=== PATIENT | male | born 1990 | race Caucasian/White ===

== ENCOUNTER 2023-08-03 16:27 | Inpatient (IN) | payer BC ==
[~2023-08-03] VITALS: Ht 165.1 cm; Wt 108.4 kg
[2023-08-03 17:41] VITALS: BP_SYST 134; PULSE 97; RESP 18; TEMP 96.7; O2SAT 96
[2023-08-03 17:51] LABS: BASOPHILS # (AUTO) 0.1 K/uL (0.0-0.2); BASOPHILS % (AUTO) 0.8 % (0.0-2.0); EOSINOPHILS # (AUTO) 0.2 K/uL (0.0-0.4); EOSINOPHILS % (AUTO) 1.5 % (0.0-4.0); HEMATOCRIT 48.8 % (36-54); LYMPHOCYTES # (AUTO) 3.5 K/uL (1.0-5.5); LYMPHOCYTES % (AUTO) 27.3 % (20.5-51.5); MEAN CORPUSCULAR HEMOGLOBIN 29 pg (27-31); MEAN CORPUSCULAR HGB CONC 35 % (32-36); MEAN CORPUSCULAR VOLUME 84 fL (79.0-98.0); MONOCYTES # (AUTO) 0.7 K/uL (0.0-1.0); MONOCYTES % (AUTO) 5.6 % (1.7-9.3); NEUTROPHILS # (AUTO) 8.3 K/uL (1.8-7.7); NEUTROPHILS % (AUTO) 64.8 % (40.0-70.0); PLATELET COUNT (AUTO) 268 K/uL (130-430); RED BLOOD CELL COUNT(AUTO) 5.83 MIL/uL (4.2-6.2); RED CELL DISTRIBUTION WIDTH 14.5 % (9.0-15.0); WHITE BLOOD COUNT (AUTO) 12.9 K/uL (4.8-10.8)
[2023-08-03 18:01] LABS: ANION GAP 11 (5-15); CALCIUM 9.2 mg/dL (8.4-11.0); CARBON DIOXIDE 23 mmol/L (23-29); CHLORIDE 104 mmol/L (98-107); CREATININE 1.26 mg/dL (0.55-1.30); GFR AFRICAN AMERICAN 86 mL/min (>90); GLUCOSE 128 mg/dL (74-106); POTASSIUM 3.6 mmol/L (3.5-5.1); SODIUM SERUM 138 mmol/L (136-145); UREA NITROGEN, BLOOD 17 mg/dL (8-21)
[2023-08-03 18:03] LABS: GFR NON AFRICAN-AMERICAN 71 mL/min (>90)
[2023-08-03 18:17] LABS: BILIRUBIN,URINE NEGATIVE (NEGATIVE); BLOOD, URINE 2+ (NEGATIVE); CLARITY/URINE CLEAR (CLEAR); COLOR,URINE YELLOW (YELLOW); GLUCOSE,URINE NEGATIVE (NEGATIVE); KETONES,URINE NEGATIVE (NEGATIVE); LEUKOCYTE ESTERASE ,URINE NEGATIVE (NEGATIVE); NITRITE, URINE NEGATIVE (NEGATIVE); PROTEIN URINE 3+ (NEGATIVE); UROBILINOGEN,URINE 0.2 (0.2-1.0)
[2023-08-03 18:22] LABS: ALCOHOL, BLOOD 3 mg/dL (<10); AMYLASE 54 U/L (0-100); LIPASE 38 U/L (16-77)
[2023-08-03 18:23] LABS: RBC,URINE 0-3 /HPF (0-3); WBC,URINE 0-3 /HPF (0-3)
[2023-08-03 18:24] LABS: BACTERIA,URINE RARE /HPF (None Seen); MUCUS,URINE None Seen /LPF (None Seen)
[2023-08-03 18:26] LABS: CREATINE KINASE, TOTAL 197 U/L (39-308); FREE T4 (FREE THYROXINE) 0.8 ng/dL (0.6-1.6); THYROID STIMULATING HORMONE 1.66 uIu/mL (0.34-4.82)
[2023-08-03 18:33] LABS: ACETONE, SERUM NEGATIVE (NEGATIVE)
[2023-08-03] MEDS: ASPIRIN 81 MG TABLET(ECOTRIN) PO ONE (19:00)
[2023-08-03] MEDS: MORPHINE 2 MG/ML INJ. SYRINGE IVP ONE (19:01)
[2023-08-03] MEDS: KETOROLAC TROMETHAMINE 60 MG/2 ML VIAL IM ONE (19:22)
[2023-08-03] MEDS: HYDROcodone/ACETAMIN 10-325 MG TAB PO ONE ×2 (19:22→19:54)
[2023-08-03] MEDS ORDERED: NACL 0.9% 2,000 ML IV ONE (19:30)
[2023-08-03] MEDS ORDERED: cloNIDine HCL 0.1 MG TABLET PO PRN (20:00)
[2023-08-03] MEDS ORDERED: CYCL10TA25 PO (21:51)
[2023-08-03] MEDS ORDERED: GUAI-1196 PO (21:51)
[2023-08-03] MEDS ORDERED: BENZ-16 PO (21:51)
[2023-08-03] MEDS ORDERED: DICY20TA55 PO (21:51)
[2023-08-03] MEDS ORDERED: HYDR-500 PO (21:51)
[2023-08-03] MEDS ORDERED: LIDO1ADH63 TD (21:51)
[2023-08-03] MEDS ORDERED: NEU300 PO (21:51)
[2023-08-03] MEDS ORDERED: QUET300T20 PO (21:52)
[2023-08-03] MEDS ORDERED: DIVA500T2 PO (21:52)
[2023-08-03] MEDS ORDERED: PRED50TA PO (21:52)
[2023-08-03] MEDS ORDERED: TRAZ50TA54 PO (21:52)
[2023-08-03 22:00] VITALS: BP_SYST 149; PULSE 78; RESP 18; TEMP 98.3; O2SAT 99
[2023-08-04] VITALS (11 sets, daily range): BP systolic 122–158; PULSE 74–89; RESP 16–20; TEMP 97.6–99; O2SAT 95–98
[2023-08-04] MEDS ORDERED: HYDROcodone/ACETAMIN 5-325 MG TAB (NORCO/ VICODIN) PO PRN (09:30)
[2023-08-04] MEDS ORDERED: NALOXONE HCL 0.4 MG/ML AMP (NARCAN) IVP PRN ×2 (09:30)
[2023-08-04] MEDS ORDERED: ONDANSETRON HCL 4 MG/2 ML VIAL IVP PRN (09:30)
[2023-08-04] MEDS ORDERED: LORazepam 2 MG/ML VIAL IVP PRN (09:30)
[2023-08-04] MEDS ORDERED: ACETAMINOPHEN 325 MG TABLET PO PRN ×2 (09:30→10:15)
[2023-08-04] MEDS: ASPIRIN 81 MG TAB.CHEW PO ONE (10:15)
[2023-08-04] MEDS: HYDROcodone/ACETAMIN 10-325 MG TAB PO PRN (10:16)
[2023-08-04] MEDS: AZITHROMYCIN 500 MG in NS 250 ML IV ONE (10:53)
[2023-08-04] MEDS: NORMAL SALINE 5 ML DISP.SYRIN IVF SCH (13:39)
[2023-08-04] MEDS ORDERED: NAPR-690 PO (16:04)
[2023-08-04] MEDS ORDERED: ACET-2634 PO (16:04)
[2023-08-04] MEDS: IPRATROPIUM/ALBUTEROL SULFATE 3 ML AMPUL.NEB (DUONEB) INH PRN (20:02)
[2023-08-04] MEDS: KETOROLAC TROMETHAMINE 30 MG VIAL IVP PRN (20:42)
[2023-08-05 00:09] VITALS: BP_SYST 124; PULSE 88; RESP 17; TEMP 97.8; O2SAT 98
[2023-08-05 06:20] LABS: BASOPHILS # (AUTO) 0.1 K/uL (0.0-0.2); BASOPHILS % (AUTO) 0.8 % (0.0-2.0); EOSINOPHILS # (AUTO) 0.3 K/uL (0.0-0.4); HEMOGLOBIN 16.3 g/dL (14.0-18.0); LYMPHOCYTES # (AUTO) 2.9 K/uL (1.0-5.5); LYMPHOCYTES % (AUTO) 30.9 % (20.5-51.5); MEAN CORPUSCULAR HEMOGLOBIN 30 pg (27-31); MEAN CORPUSCULAR HGB CONC 35 % (32-36); MEAN CORPUSCULAR VOLUME 85 fL (79.0-98.0); MONOCYTES # (AUTO) 0.6 K/uL (0.0-1.0); MONOCYTES % (AUTO) 6.4 % (1.7-9.3); NEUTROPHILS # (AUTO) 5.5 K/uL (1.8-7.7); NEUTROPHILS % (AUTO) 58.9 % (40.0-70.0); PLATELET COUNT (AUTO) 238 K/uL (130-430); RED BLOOD CELL COUNT(AUTO) 5.52 MIL/uL (4.2-6.2); RED CELL DISTRIBUTION WIDTH 14.5 % (9.0-15.0); WHITE BLOOD COUNT (AUTO) 9.4 K/uL (4.8-10.8)
[2023-08-05 06:39] LABS: CREATININE 1.24 mg/dL (0.55-1.30); POTASSIUM 3.6 mmol/L (3.5-5.1)
[2023-08-05 07:30] VITALS: BP_SYST 133; PULSE 89; RESP 16; TEMP 97.3; O2SAT 96
[2023-08-05 08:00] VITALS: O2SAT 95
[2023-08-05] MEDS: ASPIRIN 81 MG TAB.CHEW PO SCH (08:35)
[2023-08-05] MEDS: AZITHROMYCIN 250 MG TABLET PO SCH (08:36)
[2023-08-05] MEDS ORDERED: AZIT500T10 PO (09:14)
[2023-08-05] MEDS ORDERED: ASA81 PO (09:14)
[2023-08-05 13:23] VITALS: BP_SYST 164; PULSE 82; RESP 20; TEMP 98; O2SAT 96
[2023-08-05] MEDS ORDERED: cloNIDine HCL 0.1 MG TABLET PO SCH (21:00)
[2023-08-06] MEDS ORDERED: METO25TA6 PO (01:08)
== END 2023-08-05 20:00 | disposition home or self-care (01) | DRG 199 ==
LOC: SED 16:27 → STU 19:58 → SMU 08-05 18:47
PROVIDERS: ADMIT Preventive Medicine Preventive Medicine/Occupational Environmental Medicine; ATTEND Preventive Medicine Preventive Medicine/Occupational Environmental Medicine
DX: I16.0 Hypertensive urgency (principal); I24.89 Other forms of acute ischemic heart disease; R65.10 Systemic inflammatory response syndrome (SIRS) of non-infectious origin without acute organ dysfunction; J44.1 Chronic obstructive pulmonary disease with (acute) exacerbation; F19.90 Other psychoactive substance use, unspecified, uncomplicated; J20.9 Acute bronchitis, unspecified; M54.32 Sciatica, left side; Z87.891 Personal history of nicotine dependence
CPT/HCPCS: 36415; 71045; 80048; 81000; 81001; 81015; 82009; 82150; 82550; 83605; 83690; 84439; 84443; 84484; 85025; 93005; 93306; 96374; 99285; G0378; G0482; J0456; J1885; J2270; J7050; Q0144

== ENCOUNTER 2023-08-05 22:13 | Emergency (ER) | payer BC ==
[~2023-08-05] VITALS: Ht 165.1 cm; Wt 107.0 kg
[~2023-08-05 22:13] MED LIST: ACET-2634 PO; ASA81 PO; AZIT500T10 PO; CYCL10TA25 PO; DICY20TA55 PO; DIVA500T2 PO; HYDR-500 PO; LIDO1ADH63 TD; NAPR-690 PO; NEU300 PO; QUET300T20 PO; TRAZ50TA54 PO
[2023-08-05 22:29] VITALS: BP_SYST 138; PULSE 91; RESP 20; TEMP 96; O2SAT 95
[2023-08-05 23:36] LABS: BASOPHILS # (AUTO) 0.1 K/uL (0.0-0.2); BASOPHILS % (AUTO) 0.5 % (0.0-2.0); EOSINOPHILS # (AUTO) 0.2 K/uL (0.0-0.4); EOSINOPHILS % (AUTO) 1.8 % (0.0-4.0); HEMATOCRIT 49.2 % (36-54); HEMOGLOBIN 17.2 g/dL (14.0-18.0); LYMPHOCYTES # (AUTO) 2.9 K/uL (1.0-5.5); LYMPHOCYTES % (AUTO) 23.2 % (20.5-51.5); MEAN CORPUSCULAR HEMOGLOBIN 29 pg (27-31); MEAN CORPUSCULAR HGB CONC 35 % (32-36); MEAN CORPUSCULAR VOLUME 84 fL (79.0-98.0); MONOCYTES # (AUTO) 0.7 K/uL (0.0-1.0); MONOCYTES % (AUTO) 5.8 % (1.7-9.3); NEUTROPHILS # (AUTO) 8.6 K/uL (1.8-7.7); NEUTROPHILS % (AUTO) 68.7 % (40.0-70.0); PLATELET COUNT (AUTO) 253 K/uL (130-430); RED BLOOD CELL COUNT(AUTO) 5.88 MIL/uL (4.2-6.2); RED CELL DISTRIBUTION WIDTH 14.5 % (9.0-15.0); WHITE BLOOD COUNT (AUTO) 12.6 K/uL (4.8-10.8)
[2023-08-05 23:43] LABS: CALCIUM 9.1 mg/dL (8.4-11.0); CREATININE 1.35 mg/dL (0.55-1.30); POTASSIUM 3.7 mmol/L (3.5-5.1)
[2023-08-06] MEDS: METOPROLOL TARTRATE 25 MG TABLET PO ONE (00:32)
[2023-08-06] MEDS: ACETAMINOPHEN 500 MG TABLET PO ONE (00:32)
[2023-08-06] MEDS ORDERED: METO25TA6 PO (01:08)
[2023-08-06 01:29] VITALS: RESP 20; TEMP 96
[2023-08-06 02:10] VITALS: BP_SYST 136; PULSE 72; O2SAT 98
== END 2023-08-06 02:00 | disposition home or self-care (01) ==
LOC: SED 22:13
DX: I10 Essential (primary) hypertension (principal); R05.9 Cough, unspecified; Z79.899 Other long term (current) drug therapy
CPT/HCPCS: 36415; 80048; 83880; 84484; 85025; 93005; 99284

== ENCOUNTER 2023-08-07 21:50 | Inpatient (IN) | payer BC ==
[~2023-08-07] VITALS: Ht 165.1 cm; Wt 106.6 kg
[~2023-08-07 21:50] MED LIST changes: +METO25TA6 PO
[2023-08-07 22:13] VITALS: BP_SYST 167; PULSE 114; RESP 20; TEMP 96.1; O2SAT 96
[2023-08-07] MEDS: IPRATROPIUM BROM 0.5 MG/2.5 ML VIAL.NEB (ATROVENT) INH ONE (23:39)
[2023-08-07] MEDS: ALBUTEROL SULFATE 0.083% 2.5 MG/3 ML VIAL.NEB INH ONE (23:39)
[2023-08-08 00:24] LABS: BASOPHILS # (AUTO) 0.1 K/uL (0.0-0.2); BASOPHILS % (AUTO) 0.6 % (0.0-2.0); EOSINOPHILS # (AUTO) 0.1 K/uL (0.0-0.4); HEMATOCRIT 49.5 % (36-54); LYMPHOCYTES # (AUTO) 3.3 K/uL (1.0-5.5); LYMPHOCYTES % (AUTO) 27.6 % (20.5-51.5); MEAN CORPUSCULAR HEMOGLOBIN 29 pg (27-31); MEAN CORPUSCULAR HGB CONC 35 % (32-36); MEAN CORPUSCULAR VOLUME 84 fL (79.0-98.0); MONOCYTES # (AUTO) 0.7 K/uL (0.0-1.0); MONOCYTES % (AUTO) 5.6 % (1.7-9.3); NEUTROPHILS # (AUTO) 7.7 K/uL (1.8-7.7); NEUTROPHILS % (AUTO) 65.2 % (40.0-70.0); PLATELET COUNT (AUTO) 326 K/uL (130-430); RED CELL DISTRIBUTION WIDTH 15.2 % (9.0-15.0); WHITE BLOOD COUNT (AUTO) 11.8 K/uL (4.8-10.8)
[2023-08-08] MEDS: KETOROLAC TROMETHAMINE 30 MG VIAL IVP ONE (01:04)
[2023-08-08 01:36] LABS: CALCIUM 9.4 mg/dL (8.4-11.0); CREATININE 1.19 mg/dL (0.55-1.30); POTASSIUM 3.7 mmol/L (3.5-5.1)
[2023-08-08] MEDS: ASPIRIN 325 MG TABLET PO ONE (01:55)
[2023-08-08] MEDS ORDERED: GABAPENTIN 300 MG CAPSULE PO PRN (07:45)
[2023-08-08 07:54] LABS: BARBITURATE, URINE NEGATIVE (NEG <=200); BENZODIAZEPINE, URINE NEGATIVE (NEG <=150); CANNABINOID, URINE NEGATIVE (NEG <=50); COCAINE, URINE NEGATIVE (NEG <=150); METHAMPHETAMINES SCREEN,URINE NEGATIVE (NEG <=500); OPIATE, URINE NEGATIVE (NEG <=100); PHENCYCLIDINE SCREEN,URINE NEGATIVE (NEG <=25); UR TRICYCLIC ANTIDEPRESSANTS POSITIVE (NEG <=300); URINE AMPHETAMINE NEGATIVE (NEG <=500); URINE METHADONE NEGATIVE (NEG <=200); URINE OXYCODONE SCREEN NEGATIVE (NEG <=100)
[2023-08-08] MEDS: IBUPROFEN 800 MG TABLET PO PRN (08:50)
[2023-08-08] MEDS: METOPROLOL TARTRATE 25 MG TABLET PO SCH (09:30)
[2023-08-08] MEDS: DIVALPROEX SODIUM 500 MG TABLET( DEPAKOTE) PO SCH (09:31)
[2023-08-08] MEDS: ASPIRIN 81 MG TAB.CHEW PO SCH (09:31)
[2023-08-08] MEDS ORDERED: CLON0.1T PO (15:54)
[2023-08-08] MEDS ORDERED: cloNIDine HCL 0.2 MG TABLET PO ONE (16:30)
[2023-08-08 17:30] VITALS: BP_SYST 149; PULSE 70; RESP 18; TEMP 98; O2SAT 96
[2023-08-08 18:12] VITALS: BP_SYST 149; PULSE 70; RESP 18; TEMP 98; O2SAT 96
[2023-08-08] MEDS ORDERED: traZODone HCL 50 MG TABLET (DESYREL) PO SCH (21:00)
[2023-08-08] MEDS ORDERED: QUEtiapine FUMARATE 100 MG TABLET PO SCH (21:00)
== END 2023-08-08 18:22 | disposition home or self-care (01) | DRG 199 ==
LOC: SED 21:50 → STU 08-08 03:03
PROVIDERS: ADMIT General Practice; ATTEND General Practice
DX: I16.0 Hypertensive urgency (principal); I21.A1 Myocardial infarction type 2; F39 Unspecified mood [affective] disorder; I10 Essential (primary) hypertension; J20.9 Acute bronchitis, unspecified; J45.909 Unspecified asthma, uncomplicated; M54.32 Sciatica, left side; M62.838 Other muscle spasm; Z79.82 Long term (current) use of aspirin; Z79.2 Long term (current) use of antibiotics; Z79.899 Other long term (current) drug therapy
CPT/HCPCS: 36415; 71045; 72110; 80048; 80307; 82948; 83880; 84484; 85025; 85379; 93005; 94640; 99291; G0378; J1885